=== PATIENT | male | born 1955 | race Two or more races ===

== ENCOUNTER 2017-08-08 12:20 | Emergency (ER) | payer MEDICARE, MEDICAID ==
[~2017-08-08] VITALS: Ht 177.8 cm; Wt 74.8 kg
[2017-08-08 12:28] VITALS: BP 118/74
== END 2017-08-08 14:28 | disposition left against medical advice (07) ==
LOC: EDUNIT# 12:20 → ER 12:20 → EDBD 12:20 → ER 14:28
DX: M79.604 Pain in right leg (principal); Z53.21 Procedure and treatment not carried out due to patient leaving prior to being seen by health care provider

== ENCOUNTER 2019-04-27 08:27 | Emergency (ER) | payer OTHER, MEDICAID ==
[~2019-04-27] VITALS: Ht 170.2 cm; Wt 79.4 kg
[2019-04-27 08:39] VITALS: BP 149/100
== END 2019-04-27 09:23 | disposition home or self-care (01) ==
LOC: ER 08:27
DX: M70.21 Olecranon bursitis, right elbow (principal); Y93.89 Activity, other specified
CPT/HCPCS: 20605

== ENCOUNTER 2021-06-14 15:26 | Emergency (ER) | payer OTHER, MEDICAID ==
[~2021-06-14] VITALS: Ht 172.7 cm; Wt 79.4 kg
[2021-06-14] MEDS ORDERED: KETOROLAC TROMETH 60MG/2ML VIAL IM ONE (17:00)
[2021-06-14 17:09] LABS: Basophils # (auto) 0.1 10 ^3/uL (0-0.2); Basophils % (auto) 0.4 % (0.0-2.0); Eosinophils # (auto) 0 10 ^3/uL (0-0.8); Eosinophils % (auto) 0.3 % (0.0-7.0); Hematocrit 42.9 % (41.0-53.0); Hemoglobin 14.2 g/dL (13.5-17.5); Lymphocytes # (auto) 1.5 10 ^3/uL (0.4-5.4); Lymphocytes % (auto) 11.4 % (10.0-50.0); Mean Corpuscular Hemoglobin 30.2 pg (28.0-32.0); Mean Corpuscular Hgb Conc. 33.2 g/dL (32.0-36.0); Mean Corpuscular Volume 90.8 fL (80.0-100.0); Monocytes # (auto) 0.7 10 ^3/uL (0-1.3); Monocytes % (auto) 5.5 % (0.0-12.0); Neutrophils % (auto) 82.4 % (37.0-80.0); Nucleated Red Blood Cells % 0.1 %; Red Blood Cells 4.72 10^6/uL (4.5-5.90); Red Cell Distribution Width 13.8 % (11.8-14.3); White Blood Cell 13.3 10^3/uL (4.4-10.8)
[2021-06-14] MEDS ORDERED: cloNIDine HCL 0.1 MG TAB PO ONE (17:15)
[2021-06-14 17:28] LABS: Albumin 4.1 g/dL (3.4-5.0); BUN/Creatinine Ratio 12.8; Blood Urea Nitrogen 12 mg/dL (7-18); Calcium 9.4 mg/dL (8.5-10.1); Carbon Dioxide 24 mmol/L (21-32); GFR African American 104 mL/min; GFR Non-African American 86 mL/min; Glucose 100 mg/dL (74-106); Lipase 151 U/L (73-393)
[2021-06-14 17:32] LABS: Alanine Aminotransferase 32 U/L (16-61); Alkaline Phosphatase 59 U/L (45-117); Aspartate Aminotransferase 19 U/L (15-37); Bilirubin, Total 0.5 mg/dL (0.2-1.0); Total Protein 7.2 g/dL (6.4-8.2)
[2021-06-14 17:39] LABS: Anion Gap 11 (5-15); Chloride 106 mmol/L (98-107); Sodium 141 mmol/L (136-145)
[2021-06-14 17:40] LABS: Potassium 4.6 mmol/L (3.5-5.1)
[2021-06-14 22:28] VITALS: BP 162/91
== END 2021-06-14 22:28 | disposition home or self-care (01) ==
LOC: ER 15:26
DX: R10.30 Lower abdominal pain, unspecified (principal); I10 Essential (primary) hypertension; E78.5 Hyperlipidemia, unspecified
CPT/HCPCS: 36415; 74176; 80053; 83690; 84484; 85025; 93005